=== PATIENT | female | born 1930 | race Caucasian/White ===

== ENCOUNTER 2018-01-06 01:05 | Emergency (ER) | payer MEDICARE, BC ==
[~2018-01-06] VITALS: Ht 154.9 cm; Wt 66.4 kg
[2018-01-06] MEDS ORDERED: aspirin 81mg tab.chew PO ONE (01:20)
[2018-01-06] MEDS ORDERED: morphine 4 MG/ML inj SYRINge IV ONE ×3 (01:20→04:25)
[2018-01-06] MEDS ORDERED: ondansetron/PF 4mg/2ml inj IV ONE (01:20)
[2018-01-06 01:44] LABS: BASOPHILS % (AUTO) 0.4 % (0-1); EOSINOPHILS # (AUTO) 0.2 X10'3 (0-0.9); EOSINOPHILS % (AUTO) 1.7 % (0-6); HEMATOCRIT 31.5 % (35.0-45.0); HEMOGLOBIN 10.8 g/dl (12.0-16.0); LYMPHOCYTES # (AUTO) 1.1 X10'3 (1.1-4.8); LYMPHOCYTES % (AUTO) 10.5 % (21-51); MEAN CORPUSCULAR HEMOGLOBIN 29.4 PG (27.0-31.0); MEAN CORPUSCULAR HGB CONC 34.1 % (33.0-36.5); MEAN PLATELET VOLUME 7.4 FL (7.4-10.4); MONOCYTES # (AUTO) 1.3 X10'3 (0-0.9); MONOCYTES % (AUTO) 12.3 % (2-12); NEUTROPHILS # (AUTO) 7.6 X10'3 (1.8-7.7); NEUTROPHILS % (AUTO) 75.1 % (42-75); PLATELET COUNT 637 X10'3 (140-440); RED BLOOD COUNT 3.66 X10'6 (4.20-5.60); WHITE BLOOD COUNT 10.2 X10'3 (4.5-11.0)
[2018-01-06 01:49] LABS: ALANINE AMINOTRANSFERASE 21 U/L (12-78); ALBUMIN 2.8 G/DL (3.4-5.0); ALBUMIN/GLOBULIN RATIO 0.7 (1.1-1.5); ALKALINE PHOSPHATASE 120 IU/L (46-116); ANION GAP 7 (8-16); ASPARTATE AMINO TRANSFERASE 17 U/L (10-37); BILIRUBIN,TOTAL 0.5 MG/DL (0.1-1.0); BLOOD UREA NITROGEN 11 MG/DL (7-18); BUN/CREATININE RATIO 14.9 (6.6-38.0); CALCIUM 9.3 MG/DL (8.5-10.1); CHLORIDE 100 MMOL/L (99-107); CREATININE 0.74 MG/DL (0.40-0.90); GLUCOSE 117 MG/DL (70-104); POTASSIUM 4.1 MMOL/L (3.5-5.1); SODIUM 137 MMOL/L (135-145); TOTAL PROTEIN 6.6 G/DL (6.4-8.2); eGFR 75 ML/MIN
[2018-01-06] MEDS ORDERED: propofol 10mg/ml 20ml vial IV ONE (02:55)
[2018-01-06 04:31] LABS: CLARITY,URINE TURBID (Clear); COLOR,URINE YELLOW (Yellow); GLUCOSE, URINE NEGATIVE (Neg); KETONES,URINE NEGATIVE (Neg); LEUKOCYTE ESTERASE ,URINE LARGE (Neg); NITRITES, URINE POSITIVE (Neg); OCCULT BLOOD,URINE MODERATE (Neg); PH,URINE 6.5 (4.8-8.0); PROTEIN,URINE 100 mg/dl (Neg); UROBILINOGEN,URINE 0.2 E.U/dL (0.2-1.0)
[2018-01-06 04:39] LABS: UA COLLECTION TYPE FOLEY CATH
[2018-01-06 04:40] LABS: BACTERIA,URINE 4+ /HPF (Neg); MUCUS STRANDS MANY /LPF (Neg); SQUAMOUS EPITHELIAL CELL,UR FEW /LPF (FEW); WBC,URINE TNTC /HPF (0-4)
[2018-01-06 04:41] LABS: WBC CLUMPS,URINE MANY /HPF (NEGATIVE)
[2018-01-06] MEDS ORDERED: HYDR-568 PO (04:52)
[2018-01-06] MEDS ORDERED: CIPR-259 PO (04:54)
[2018-01-06] MEDS ORDERED: ciprofloxacin 250mg tablet PO ONE (04:55)
[2018-01-06 05:21] VITALS: BP 123/53
== END 2018-01-06 06:19 | disposition home or self-care (01) ==
LOC: ER 01:06
DX: T84.020D Dislocation of internal right hip prosthesis, subsequent encounter (principal); I48.91 Unspecified atrial fibrillation; N39.0 Urinary tract infection, site not specified; Z86.73 Personal history of transient ischemic attack (TIA), and cerebral infarction without residual deficits; Z88.2 Allergy status to sulfonamides
CPT/HCPCS: 27265; 36415; 73502; 80053; 81001; 84484; 85025; 87077; 87088; 87186; 93005; 94760; 96374; 96375; 96376; 99152; 99285; A4315; J2270; J2405; J2704; J7030; 27250; A4620